=== PATIENT | female | born 1950 | race Asian ===

== ENCOUNTER 2016-08-17 15:06 | Inpatient (IN) | payer MEDICAID ==
[~2016-08-17] VITALS: Ht 152.4 cm; Wt 57.1 kg
[2016-08-17 15:48] LABS: BASOPHIL % 0.2 % (0-2); PLATELET COUNT 183 x10^3mcL (130-400); RED CELL DISTRIBUTION WIDTH 12.7 % (11.5-14.5)
[2016-08-17 15:53] LABS: CALCIUM 8.8 mg/dL (8.5-10.1); CARBON DIOXIDE 22.4 mmol/L (21-32); CHLORIDE SERUM 105 mmol/L (98-107); CREATININE SERUM 0.9 mg/dL (0.6-1.0); GFR1 > 60 mL/min; GLUCOSE SERUM 150 mg/dL (74-106); POTASSIUM SERUM 3.6 mmol/L (3.5-5.1); SODIUM SERUM 139 mmol/L (136-145)
[2016-08-17 16:06] LABS: ALBUMIN 3.4 g/dL (3.4-5.0); ALKALINE PHOSPHATASE 68 U/L (46-116); ALT/SGPT 32 U/L (14-59); AST/SGOT 26 U/L (15-37); BILIRUBIN TOTAL 0.7 mg/dL (0.20-1.00); MAGNESIUM 1.7 mg/dL (1.8-2.4); T4(THYROXINE) 9.5 ug/dL (4.7-13.3)
[2016-08-17 17:14] VITALS: BP 119/69
[2016-08-17 17:39] LABS: CHOLESTEROL/HDL RATIO 2.8; PHOSPHOROUS 3.5 mg/dL (2.5-4.9)
[2016-08-17 17:47] LABS: T3 TOTAL 1.19 ng/mL
[2016-08-17 17:48] LABS: FREE T4 1.13 ng/dL (0.76-1.46); FREE THYROXINE INDEX 3.6 ug/dL (1.4-4.5); T4(THYROXINE) 10.3 ug/dL (4.7-13.3)
[2016-08-17 20:30] VITALS: BP 110/65
[2016-08-18 05:23] VITALS: BP 106/54
[2016-08-18 06:26] LABS: BASOPHIL % 0.4 % (0-2); PLATELET COUNT 153 x10^3mcL (130-400); RED CELL DISTRIBUTION WIDTH 12.8 % (11.5-14.5)
[2016-08-18 06:43] LABS: CALCIUM 8.3 mg/dL (8.5-10.1); CARBON DIOXIDE 23.7 mmol/L (21-32); CHLORIDE SERUM 108 mmol/L (98-107); CREATININE SERUM 0.7 mg/dL (0.6-1.0); GFR1 > 60 mL/min; GLUCOSE SERUM 91 mg/dL (74-106); PHOSPHOROUS 3.8 mg/dL (2.5-4.9); POTASSIUM SERUM 3.8 mmol/L (3.5-5.1); SODIUM SERUM 137 mmol/L (136-145)
[2016-08-18 09:29] VITALS: BP 112/58
[2016-08-18 12:14] LABS: UA SPECIFIC GRAVITY 1.015 (1.005-1.035); microscopic required? YES; urine erythrocyte TRACE (NEGATIVE)
[2016-08-18 13:17] VITALS: BP 100/75
[2016-08-18 17:07] VITALS: BP 105/54
[2016-08-18 22:02] VITALS: BP 122/56
[2016-08-19 05:36] VITALS: BP 119/70
[2016-08-19 06:16] LABS: BASOPHIL % 0.4 % (0-2); PLATELET COUNT 142 x10^3mcL (130-400); RED CELL DISTRIBUTION WIDTH 12.7 % (11.5-14.5)
[2016-08-19 06:21] LABS: CALCIUM 8.7 mg/dL (8.5-10.1); CARBON DIOXIDE 26.6 mmol/L (21-32); CHLORIDE SERUM 108 mmol/L (98-107); CREATININE SERUM 0.7 mg/dL (0.6-1.0); GFR1 > 60 mL/min; GLUCOSE SERUM 93 mg/dL (74-106); POTASSIUM SERUM 3.7 mmol/L (3.5-5.1); SODIUM SERUM 143 mmol/L (136-145)
[2016-08-19] MEDS ORDERED: TOP50 PO (06:49)
[2016-08-19 10:09] VITALS: BP 122/74
[2016-08-19 12:38] VITALS: BP 122/74
[2016-08-19 12:59] VITALS: BP 114/61
== END 2016-08-19 13:29 | disposition home or self-care (01) | DRG 201 ==
LOC: ED 15:06 → DU 16:25
PROVIDERS: Emergency Medicine; ADMIT Family Medicine
DX: I47.1 Supraventricular tachycardia (principal); I27.2 Other secondary pulmonary hypertension; E83.42 Hypomagnesemia; E78.5 Hyperlipidemia, unspecified; D64.9 Anemia, unspecified; Z68.24 Body mass index [BMI] 24.0-24.9, adult
CPT/HCPCS: 83880; 84439; J0153; J1644; J7030

== ENCOUNTER 2019-04-09 17:52 | Emergency (ER) | payer OTHER, MEDICAID ==
[~2019-04-09] VITALS: Ht 157.5 cm; Wt 55.8 kg
[~2019-04-09 17:52] MED LIST: TOP50 PO
[2019-04-09 17:56] VITALS: Ht 157.5 cm; Wt 55.8 kg
[2019-04-09 18:27] LABS: BASOPHIL % 0.3 % (0-2); PLATELET COUNT 172 x10^3mcL (130-400); RED CELL DISTRIBUTION WIDTH 12.8 % (11.5-14.5)
[2019-04-09 19:01] LABS: CARBON DIOXIDE 23.1 mmol/L (21-32); CHLORIDE SERUM 107 mmol/L (98-107); CREATININE SERUM 0.8 mg/dL (0.6-1.0); GFR1 > 60 mL/min; GLUCOSE SERUM 131 mg/dL (74-106); POTASSIUM SERUM 3.3 mmol/L (3.5-5.1); SODIUM SERUM 140 mmol/L (136-145)
[2019-04-09 19:12] LABS: ALKALINE PHOSPHATASE 58 U/L (46-116); ALT/SGPT 31 U/L (14-59); AST/SGOT 27 U/L (15-37); BILIRUBIN TOTAL 0.3 mg/dL (0.20-1.00); HDL CHOLESTEROL 37 mg/dL (40-60); LIPASE 144 IU/L (73-393); MAGNESIUM 1.7 mg/dL (1.8-2.4); T4(THYROXINE) 7.8 ug/dL (4.7-13.3); TOTAL PROTEIN, SERUM 6.3 g/dL (6.4-8.2)
[2019-04-09 19:14] LABS: ALBUMIN 2.9 g/dL (3.4-5.0); CHOLESTEROL 126 mg/dL (<200)
[2019-04-09 19:49] LABS: microscopic required? YES; urine erythrocyte 1+ (NEGATIVE)
[2019-04-09 20:55] VITALS: BP 117/73
[2019-04-09 21:01] LABS: AMPHETAMINE QUAL UR NONE DETECTED (See below)
== END 2019-04-09 20:55 | disposition home or self-care (01) ==
LOC: ED 17:52
PROVIDERS: Emergency Medicine
DX: E87.6 Hypokalemia (principal); D64.9 Anemia, unspecified; E46 Unspecified protein-calorie malnutrition; I10 Essential (primary) hypertension
CPT/HCPCS: 36415; 83880; J0153; J2060; J7030; Q0092; Q0162